=== PATIENT | male | born 1980 | race Caucasian/White ===

== ENCOUNTER → 2018-09-05 | Outpatient (REF) ==
--- NOTE | 2018-09-05 14:58 | REP ---
Left shoulder three views : There is no fracture or dislocation. Mineralization and joint spaces are normal. There are no calcifications or foreign bodies. Impression: Negative left shoulder . Electronically Signed by Anjel Burris MD 09/05/2018 02:50 P
== END ==
LOC: M SMT 13:06
PROVIDERS: ATTEND Internal Medicine
DX: Z02.71 Encounter for disability determination (principal)